=== PATIENT | female | born 1965 | race Asian ===

== ENCOUNTER → 2018-05-29 | Outpatient (CLI) | payer BC | LOC: MC.RAD 06:55 | DX: Z12.31 Encounter for screening mammogram for malignant neoplasm of breast (principal) ==

== ENCOUNTER → 2020-06-29 | Outpatient (CLI) | payer BC | LOC: MC.RAD 14:51 | DX: Z12.31 Encounter for screening mammogram for malignant neoplasm of breast (principal) ==

== ENCOUNTER → 2021-03-05 | Outpatient (CLI) | payer BC | LOC: MC.RAD 09:45 | DX: D17.1 Benign lipomatous neoplasm of skin and subcutaneous tissue of trunk (principal) ==

== ENCOUNTER 2023-01-03 12:06 | Outpatient (CLI) | payer OTHER ==
[~2023-01-03] VITALS: Ht 167.6 cm; Wt 60.9 kg
[2023-01-03 12:49] VITALS: BP 118/74; PULSE 62; TEMP 98.2
[2023-01-03] MEDS ORDERED: GLUCOSAMINE & C1 TAB PO (12:49)
[2023-01-03] MEDS ORDERED: ADDERALL XR20 MG PO (12:49)
[2023-01-03 14:10] VITALS: BP 123/62; PULSE 56
[2023-01-03 14:20] VITALS: BP 112/63; PULSE 69
[2023-01-03 14:35] VITALS: BP 115/67; PULSE 68
[2023-01-03 14:37] LABS: GLUCOSE,CSF 52 mg/dL (40-70); TOTAL PROTEIN,CSF 48 mg/dL (15-45)
[2023-01-03 14:50] VITALS: BP 104/70; PULSE 66
[2023-01-03 15:05] LABS: CSF APPEARANCE CLEAR; CSF COLOR COLORLESS; CSF RBC 208 /mm3 (0-0)
--- NOTE | 2023-01-03 15:20 | NUR ---
PT UP IN ROOM, TOLERATES WELL, BANDAID REMAINS THE SAME, DISCHARGED WITH INST. SHEET VIA W/C TO CAR WITH FRIEND
[2023-01-03 17:13] LABS: CSF MONONUCLEAR 67 % (70-100); CSF POLYMORPHONUCLEAR 33 % (0-6)
[2023-01-05] MEDS ORDERED: FIORINAL 325 MG1 CAP PO (12:06)
== END 2023-01-03 15:31 | disposition home or self-care (01) ==
LOC: COL.RAD 12:06
PROVIDERS: Psychiatry & Neurology Neurology
DX: I63.9 Cerebral infarction, unspecified (principal)

== ENCOUNTER → 2023-01-16 | Outpatient (CLI) | payer OTHER ==
[~2023-01-16] MED LIST: ADDERALL XR20 MG PO; FIORINAL 325 MG1 CAP PO; GLUCOSAMINE & C1 TAB PO
== END ==
LOC: MC.RAD 11:45
DX: Z12.31 Encounter for screening mammogram for malignant neoplasm of breast (principal); Z98.82 Breast implant status